=== PATIENT | female | born 1935 | race Caucasian/White ===

== ENCOUNTER → 2019-07-15 | Outpatient (CLI) | payer MEDICARE ==
--- NOTE | 2019-07-15 12:32 | XR ---
EXAMINATION TYPE: XR chest 2V, XR abdomen 1V DATE OF EXAM: 07/15/2019 COMPARISON: NONE HISTORY: Medical clearance TECHNIQUE: Frontal and lateral views of the chest are obtained. Single view of the abdomen was also obtained. FINDINGS: CHEST: Nodular density abutting the left paratracheal space within the left lung apex is seen measuri ng approximately [address] thorax is recommended for this finding. Moderate degenerative changes of the spine and dextroscoliosis of the thoracolumbar spine are noted. There is diffuse osseous demineralization. Flattening of the diaphragms on the lateral view relates to underlying COPD as does an increased retr osternal airspace. Cardiomediastinal silhouette is within normal limits. ABDOMEN: Levoscoliosis of the lumbar spine and advanced degenerative changes are seen. Colonic fecal stasis is seen within the rectum and right hemicolon. No suspicious calcification in the abdomen or pelvis. Os seous structures appear intact. IMPRESSION: 1. CT thorax is recommended for an 8 mm nodule density at the medial left lung apex. 2. Underlying emphysema is seen with no acute pulmonary process. 3. Mild degree colonic fecal stasis of the right hemicolon and rectum. Nonobstructive bowel gas patte rn.
== END | disposition home or self-care (01) ==
LOC: LABWHC1 10:57
PROVIDERS: ATTEND Urology
DX: J43.9 Emphysema, unspecified (principal); R91.1 Solitary pulmonary nodule; R19.5 Other fecal abnormalities; I10 Essential (primary) hypertension; C64.2 Malignant neoplasm of left kidney, except renal pelvis
CPT/HCPCS: 36415; 71046; 74018; 93005

== ENCOUNTER → 2019-07-29 | Outpatient (CLI) | payer MEDICARE ==
--- NOTE | 2019-07-29 11:59 | CT ---
EXAMINATION TYPE: CT chest w con DATE OF EXAM: 07/29/2019 COMPARISON: None HISTORY: Left renal cancer, C 65.1 CT DLP: 116.4 mGycm, Automated exposure control for dose reduction was used. CONTRAST: Performed injected with 100 ml mL of Isovue 300. TECHNIQUE: Axial images were obtained at 5 mm thick sections. Reconstructed images are reviewed on [employer] computer in the coronal plane. FINDINGS: Portion of the thyroid visualized is normal. There is a 0.3 cm nodule within the posterior right midlung. Series 4 image 30. There is a 0.3 cm nod ule in the right middle lobe. Series 4 image 40 No enlarged mediastinal or hilar adenopathy is evident. The ascending aorta diameter at the level o f the main pulmonary artery is 3.5 cm. The main pulmonary artery diameter at the bifurcation is 2.[address] sections are obtained through the upper abdomen. There is diminished contrast within the l eft superior kidney compared to the right. IMPRESSIONS: 1. 2 small nodules measuring 0.3 cm each within the right lung. 2. Asymmetry of the contrast within the kidneys likely related to the patient's renal cancer
--- NOTE | 2019-07-29 19:11 | NM ---
EXAMINATION TYPE: NM bone scan whole body DATE OF EXAM: 07/29/2019 COMPARISON: NONE HISTORY: C 65.1 renal cancer Delayed whole-body scanning was performed following the injection of 26.1 mCi Tc 99m MDP. Images wer e acquired 4.5 hours post injection. FINDINGS: Several scattered areas of focal uptake are suspicious for radiotracer. There is intense uptake withi n the bilateral sacral ala and through the bilateral Ischial rami and within the left pubic ramus josé picious for metastatic disease. There is uptake within right ribs on right rib 5,6,7 region anteriorly have focal uptake which can be related to metastatic disease. Trauma should be considered at this location as well. There is an add itional foci of radiotracer which appears to be in the posterior lateral left 11th rib. Metastatic di sease trauma could be considered. There is focal radiotracer accumulation in the region of L4 and L5 which is better appreciated on the posterior views. Metastatic disease isn't trauma could be considered. There is a scoliosis within th e thoracolumbar spine suggesting degenerative changes should also be considered. Plain film correlati on could be performed. Additionally there is some radiotracer T10 T8 and T7 which could be related to trauma or metastatic d isease. Plain film correlation could be performed. IMPRESSION: 1. Focal areas of uptake within the pelvis and sacral ala suggestive for metastatic disease. 2. Uptake within the lumbar spine could be degenerative, posttraumatic, or metastatic disease. 3. Focal uptake within the mid lower thoracic spine could be posttraumatic or metastatic etiology. 4. Focal uptake within the anterior right mid ribs a posterior left lateral lower rib can be related to trauma or metastatic disease.
== END | disposition home or self-care (01) ==
LOC: RADNMMAIN 10:00
PROVIDERS: ATTEND Urology
DX: R91.1 Solitary pulmonary nodule (principal); C65.1 Malignant neoplasm of right renal pelvis; Z88.0 Allergy status to penicillin
CPT/HCPCS: 82565; 84520; 71260; 36415; 78306; A9503; Q9967

== ENCOUNTER → 2019-08-09 | Outpatient (CLI) | payer MEDICARE ==
[2019-08-09 12:22] LABS: Basophils % (A) 1 %; Eosinophils # (A) 0.3 k/uL (0-0.7); Eosinophils % (A) 3 %; HCT 40.4 % (34.0-46.0); HGB 13.3 gm/dL (11.4-16.0); Hypochromasia Slight; Lymphocytes # (A) 2.6 k/uL (1.0-4.8); Lymphocytes % (A) 32 %; MCH 30.8 pg (25.0-35.0); MCHC 32.9 g/dL (31.0-37.0); MCV 93.6 fL (80.0-100.0); Mean Platelet Volume 7.7; Monocytes # (A) 0.6 k/uL (0-1.0); Monocytes % (A) 7 %; Neutrophils # (A) 4.6 k/uL (1.3-7.7); Neutrophils % (A) 56 %; Platelet Count 233 k/uL (150-450); RBC 4.32 m/uL (3.80-5.40); RDW 12.4 % (11.5-15.5); WBC 8.2 k/uL (3.8-10.6)
[2019-08-09 12:26] LABS: INR 0.9 (<1.2); Prothrombin Time 9.9 sec (9.0-12.0)
[2019-08-09 12:31] LABS: Albumin 3.9 g/dL (3.5-5.0); Calcium 9.5 mg/dL (8.4-10.2); Potassium 3.9 mmol/L (3.5-5.1); Total Bilirubin 0.4 mg/dL (0.2-1.3); Total Protein 7.2 g/dL (6.3-8.2)
== END | disposition home or self-care (01) ==
LOC: LABPAT 11:23
PROVIDERS: ATTEND Urology
DX: Z01.812 Encounter for preprocedural laboratory examination (principal); C65.2 Malignant neoplasm of left renal pelvis; E86.0 Dehydration; R31.29 Other microscopic hematuria; I10 Essential (primary) hypertension; Z79.899 Other long term (current) drug therapy
CPT/HCPCS: 36415; 80053; 85025; 85610; 87086

== ENCOUNTER 2019-08-16 11:01 | Day surgery (SDC) | payer MEDICARE ==
--- NOTE | 2019-08-10 13:19 | P.HPIHPCON ---
History of Present Illness H&P Date: 08/10/19 Chief Complaint: Left sided renal pelvis tumor Ms. Pablo is a 84 yo female with hx of left sided tumor involving the renal pelvis and extending down the ureter. She elected to proceed with left sided NephU. We discussed risks and benefit of surgery with her. have explained the operation/procedure to the patient, including the risks, benefits, side effects, alternative therapies (including not receiving the proposed treatment or service), the likelihood of the patient achieving his/her goals, and potential recuperation problems for the procedure/sedation/analgesia, as well as any blood products, if indicated. I also explained to the patient the risks, benefits and side effects of the alternatives, as well as the risks related to not receiving the proposed procedure, care, treatment, or services. I also reviewed her metastatic workup with her and discussed the finding on the CT showing 3mm nodules and this could represent metastatic disease. Discussed with her biopsy would be difficult, given the size of those lesions. I also discussed the find ing of bone scan and discussed with radiology and with her and indicated that those lesion are most likely post traumatic, but they could also represent metastatic disease. She understood all the risk and agreed to proceed Consent for Procedure: I have explained the operation/procedure to the patient, including the risks, benefits, side effects, alternative therapies (including not receiving the proposed treatment or service), the likelihood of the patient achieving his/her goals, and potential recuperation problems for the procedure/sedation/analgesia, as well as any blood products, if indicated. I also explained to the patient the risks, benefits and side effects of the alternatives, as well as the risks related to not receiving the proposed procedure, care, treatment, or services. 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
[~2019-08-16 11:01] MED LIST: DEXAMETHASONE SOD PHOSPHATE 10 MG/ML 1 ML VIAL IV ONE; HYDROmorphone 0.5 MG/0.5 ML SYRINGE IVP PRN; MIDAZOLAM 2 MG/2 ML VIAL IV PRN; ONDANSETRON 4 MG/2 ML VIAL IVP ONE
[2019-08-16] MEDS ORDERED: LIDOCAINE 1% 20 ML VIAL (10MG/ML) FOR IV START INTRADERMA ONE (11:51)
[2019-08-16] MEDS: LACTATED RINGERS 1,000 ML IV SCH (11:51)
[2019-08-16] MEDS ORDERED: SUCCINYLCHOLINE CHLORIDE 100 MG/5 ML SYR IV ONE (12:44)
[2019-08-16] MEDS ORDERED: METOPROLOL TARTRATE 5 MG/5 ML VIAL IVP ONE (12:44)
[2019-08-16] MEDS ORDERED: ESMOLOL 100 MG/10 ML VIAL ONE (12:44)
[2019-08-16] MEDS ORDERED: MIDAZOLAM 2 MG/2 ML VIAL ONE (12:44)
[2019-08-16] MEDS ORDERED: LIDOCAINE 1% INJ 10MG/ML (20 ML MDV) ONE (12:44)
[2019-08-16] MEDS ORDERED: PROPOFOL 10 MG/ML 20 ML VIAL IV ONE (12:44)
[2019-08-16] MEDS ORDERED: NEOSTIGMINE 1 MG/ML 10 ML VIAL ONE (12:44)
[2019-08-16] MEDS ORDERED: GLYCOPYRROLATE 0.2 MG/ML 2 ML VIAL ONE (12:44)
[2019-08-16] MEDS ORDERED: fentaNYL (PF) 50 MCG/ML 2 ML AMP ONE (12:44)
[2019-08-16] MEDS ORDERED: ePHEDrine SULFATE/0.9% NACL/PF 50 MG/5 ML SYRINGE IV ONE (12:44)
[2019-08-16] MEDS ORDERED: ROCURONIUM BROMIDE 10 MG/ML 10 ML VIAL IV ONE (12:44)
[2019-08-16] MEDS ORDERED: PHENYLEPHRINE-0.9% NACL SYG 1 MG/10 ML SYRINGE ONE (12:44)
[2019-08-16] MEDS ORDERED: BUPIVACAINE (PF) 0.5% 30 ML VIAL SQ ONE ×2 (12:49)
[2019-08-16] MEDS ORDERED: LACTATED RINGERS 1,000 ML IV ONE (13:45)
[2019-08-16] MEDS ORDERED: HYDROmorphone 1 MG/ML 1 ML SYRINGE IVP PRN (15:55)
[2019-08-16] MEDS ORDERED: METHOCARBAMOL 750 MG TAB PO PRN (15:58)
[2019-08-16] MEDS: ACETAMINOPHEN TAB 325 MG TAB PO SCH ×2 (18:25→21:41)
[2019-08-16] MEDS: HEPARIN SODIUM,PORCINE 5,000 UNIT/ML 1 ML VIAL SQ SCH (18:26)
[2019-08-16 21:16] LABS: Basophils % (A) 0 %; Eosinophils % (A) 0 %; HCT 38.4 % (34.0-46.0); HGB 12.2 gm/dL (11.4-16.0); Hypochromasia Slight; Lymphocytes # (A) 0.5 k/uL (1.0-4.8); Lymphocytes % (A) 4 %; MCH 31.1 pg (25.0-35.0); MCHC 31.7 g/dL (31.0-37.0); MCV 97.8 fL (80.0-100.0); Mean Platelet Volume 7.7; Monocytes # (A) 0.6 k/uL (0-1.0); Monocytes % (A) 5 %; Neutrophils # (A) 10.9 k/uL (1.3-7.7); Neutrophils % (A) 89 %; Platelet Count 189 k/uL (150-450); RBC 3.92 m/uL (3.80-5.40); RDW 12.4 % (11.5-15.5); WBC 12.2 k/uL (3.8-10.6)
[2019-08-16 21:26] LABS: Calcium 9.2 mg/dL (8.4-10.2); Potassium 4.6 mmol/L (3.5-5.1)
[2019-08-16] MEDS: D5-0.45% NACL WITH KCL 20MEQ/L 1,000 ML IV SCH (21:42)
[2019-08-17] MEDS: ACETAMINOPHEN TAB 325 MG TAB PO SCH ×7 (00:51→23:43)
[2019-08-17] MEDS: HEPARIN SODIUM,PORCINE 5,000 UNIT/ML 1 ML VIAL SQ SCH ×4 (00:51→23:43)
[2019-08-17] MEDS: D5-0.45% NACL WITH KCL 20MEQ/L 1,000 ML IV SCH ×3 (04:43→23:12)
--- NOTE | 2019-08-17 11:55 | P.PN ---
Subjective Progress Note Date: 08/17/19 POD #1 S/P left NephU, no overight event. Pain controlled, tolerating diet, denies N/V. Objective - Vital Signs Vital signs: Vital Signs Temp 98.1 F 08/17/19 07:00 Pulse 67 08/17/19 08:50 Resp 17 08/17/19 08:50 BP 123/67 08/17/19 07:00 Pulse Ox 99 08/17/19 07:00 Intake & Output 08/16/19 08/17/19 08/17/19 18:59 06:59 18:59 Intake Total 1750 1375 Output Total 245 710 Balance 1505 665 Intake: IV 1750 Intake, IV Titration 1375 Amount D5-0.45% NaCl with KCl 1375 20Meq/l 1,000 ml @ 125 mls/hr IV .Q8H [facility] Rx#: [id number] Output: Drainage 60 Left Lower Abdomen 60 Urine 145 650 Estimated Blood Loss 100 Other: Voiding Method Indwelling Catheter Indwelling Catheter Indwelling Catheter - Constitutional General appearance: Present: no acute distress - Gastrointestinal General gastrointestinal: Present: soft. Absent: distended, tenderness - Labs CBC & Chem 7: 08/16/19 21:06 08/16/19 21:06 Labs: Abnormal Lab Results - Last 24 Hours (Table) 08/16/19 08/16/19 Range/Units 21:06 21:06 WBC 12.2 H (3.8-10.6) k/uL Neutrophils # 10.9 H (1.3-7.7) k/uL Lymphocytes # 0.5 L (1.0-4.8) k/uL Sodium 136 L (137-145) mmol/L BUN 19 H (7-17) mg/dL Glucose 158 H (74-99) mg/dL Assessment and Plan Assessment: POD #1 S/P Left NephU Plan: -Ambulate -Pain control -Regular diet -PM labs -discharge home tomorrow
[2019-08-17 15:05] VITALS: BMI 18.9
--- NOTE | 2019-08-17 19:34 | P.OP ---
Date of Procedure: 08/16/19 Preoperative Diagnosis: Left renal pelvis mass Postoperative Diagnosis: same Procedure(s) Performed: Robotic assisted Left nephroureterctomy, and Retroperitoneal lymph node excision Anesthesia: SHREYA Surgeon: Juanito Almendarez Furnace Unloader #1: Giovany Green Estimated Blood Loss (ml): 100 Indications for Procedure: Ms. Pablo is a 84 yo female with hx of left sided tumor involving the renal pelvis and extending down the ureter. She elected to proceed with left sided NephU. We discussed risks and benefit of surgery with her. I have explained the operation/procedure to the patient, including the risks, benefits, side effects, alternative therapies (including not receiving the proposed treatment or service), the likelihood of the patient achieving his/her goals, and potential recuperation problems for the procedure/sedation/analgesia, as well as any blood products, if indicated. I also explained to the patient the risks, benefits and side effects of the alternatives, as well as the risks related to not receiving the proposed procedure, care, treatment, or services. I also reviewed her metastatic workup with her and discussed the finding on the CT showing 3mm nodules and this could represent metastatic disease. Discussed with her biopsy would be difficult, given the size of those lesions. I also discussed the finding of bone scan and discussed with radiology and with her and indicated that those lesion are most likely post traumatic, but they could also represent metastatic disease. She understood all the risk and agreed to proceed Operative Findings: Very stuck and no clear surgical planes along the kidney secondary to patient aggressive tumor Description of Procedure: The patient was taken to the operating room . General anesthesia was induced. She was prepped and draped in sterile fashion, she was placed in modified flank position . All pressure points were padded. The abdominal insufflation was achieved with the Veress needle. A 8 mm camera port was placed. Robotic trocars and assistant clinical nurse manager ports were placed under direct vision. Lysis of adhesion was performed laproscopically. The robot was docked into place. The colon was mobilized medially by incising along the white line of Toldt. Of note the kidney was stuck to the pancreas and spleen, the surgical planes were very difficult to dissect and develop secondary to patient aggressive tumor. When the spleen was mobilized a small laceration was noticed along spleen capsule. Hemostasis was achieved using Tisseal and Bipolar. Once the bowel, spleen and pancreas were mobilized. At this time it was noted that the medial kidney edge was adherent to the aorta, no surgical plane was appreciated. The inferior mesentric artery was ligated using clips in order to safely mobilize the kidney off of the aorta and in order to mobilize the ureter further. The ureter was retracted anteriorly off the psoas muscle. Dissection proceeded cranially towards the renal hilum. The upper pole attachments were dissected. Care was taken to safely mobilize the kidney free of all visceral structures.The renal vessels were dissected and ligated using the vascular stapler. The adrenal gland was mobilized. Lateral and remaining kidney attachments were released.The ureter was dissected further distally. of note the ureter was adherent to the illiac vessels, but a plane was obtained and the ureter was dissected off of the illiac vessels. Dissection was carried down to the bladder and ureteral orfice was excised with an adequate bladder cuff margin. there was an enlarged retroperitoneal node that was excised. The specimen was placed in a 15 mm endocatch bag for subsequent retrieval. The spleen was evaluated at the end of case and there was no evidence of bleeding. The bowel was examined at the end of case the there was no evidence of bowel ischemia. Hemostatic agent was placed along the hilum and adrenal plane. The cystotomy was closed with 3-0 V-loc suture in a running fashion and the defect was confirmed to be water tight with irrigation. A GUALBERTO drain was left in place. The robot was then de-docked and the specimen was then removed by extending the assistant clinical nurse manager port. Fascia was closed with #1 Stratafix. Skin was closed with subcuticular sutures and dermabond. The patient was awoken from general anesthesia in stable condition. Please refer to the final pathology report for final diagnosis. .
[2019-08-17 21:26] LABS: Calcium 8.8 mg/dL (8.4-10.2); Potassium 4.3 mmol/L (3.5-5.1)
[2019-08-17 21:33] LABS: Basophils % (A) 0 %; Eosinophils % (A) 0 %; HCT 36.3 % (34.0-46.0); HGB 11.5 gm/dL (11.4-16.0); Hypochromasia Slight; Lymphocytes # (A) 1.4 k/uL (1.0-4.8); Lymphocytes % (A) 14 %; MCH 30.8 pg (25.0-35.0); MCHC 31.7 g/dL (31.0-37.0); MCV 97.2 fL (80.0-100.0); Monocytes # (A) 0.6 k/uL (0-1.0); Monocytes % (A) 6 %; Neutrophils % (A) 79 %; Platelet Count 168 k/uL (150-450); RBC 3.74 m/uL (3.80-5.40); RDW 12.5 % (11.5-15.5); WBC 10.1 k/uL (3.8-10.6)
[2019-08-18] MEDS: ACETAMINOPHEN TAB 325 MG TAB PO SCH ×4 (05:10→17:23)
[2019-08-18] MEDS: D5-0.45% NACL WITH KCL 20MEQ/L 1,000 ML IV SCH ×2 (05:11→11:56)
[2019-08-18 07:42] VITALS: BP 154/77; PULSE 78; RESP 15; TEMP 98.5
[2019-08-18] MEDS: HEPARIN SODIUM,PORCINE 5,000 UNIT/ML 1 ML VIAL SQ SCH ×2 (09:19→17:23)
--- NOTE | 2019-08-18 12:25 | P.PN ---
Subjective Progress Note Date: 08/18/19 POD #2 S/P left NephU, no overight event. Pain controlled, tolerating diet, denies N/V. Objective - Vital Signs Vital signs: Vital Signs Temp 98.5 F 08/18/19 07:00 Pulse 78 08/18/19 08:00 Resp 15 08/18/19 08:00 BP 154/77 08/18/19 07:00 Pulse Ox 97 08/18/19 07:00 Intake & Output 08/17/19 08/18/19 08/18/19 18:59 06:59 18:59 Intake Total 1400 1250 Output Total 670 2505 30 Balance 730 -1255 -30 Weight 48.534 kg Intake: Intake, IV Titration 1000 1250 Amount D5-0.45% NaCl with KCl 1000 1250 20Meq/l 1,000 ml @ 125 mls/hr IV .Q8H [facility] Rx#: [id number] Oral 400 Output: Drainage 20 80 30 Left Lower Abdomen 20 80 30 Urine 650 2425 Other: Voiding Method Indwelling Catheter Indwelling Catheter - Constitutional General appearance: Present: no acute distress - Gastrointestinal General gastrointestinal: Present: soft. Absent: distended, rigid - Genitourinary Genitourinary Comment(s): mora clear yellow urine - Integumentary Integumentary Comment(s): Incision: CDI - Psychiatric Psychiatric: Present: A&O x's 3 - Labs CBC & Chem 7: 08/17/19 20:53 08/17/19 20:53 Labs: Abnormal Lab Results - Last 24 Hours (Table) 08/17/19 08/17/19 Range/Units 20:53 20:53 RBC 3.74 L (3.80-5.40) m/uL Neutrophils # 8.0 H (1.3-7.7) k/uL Sodium 136 L (137-145) mmol/L Carbon Dioxide 31 H (22-30) mmol/L Glucose 135 H (74-99) mg/dL Assessment and Plan Assessment: POD #2 S/P Left NephU Plan: -Ambulate -Pain control -Regular diet -remove GUALBERTO -discharge home today -F/U next week for mora removal
--- NOTE | 2019-08-18 13:20 | P.DS ---
Providers Date of admission: 08/16/19 Expected date of discharge: 08/18/19 Attending physician: Juanito Almendarez MD Primary care physician: [facility] Course: 84 yo female S/P Left NephU, please see Op note dated 08/16 for full surgery details. Patient did well in post operative period. She was advanced to regular diet on POD #1. Her GUALBERTO was removed on POD #2. She was discharged home on POD #2. At time of discharge she was tolerating diet, ambulating and pain controlled Patient Condition at Discharge: Good Plan - Discharge Summary Discharge Rx Participant: Yes New Discharge Prescriptions: No Action Ezetimibe [Zetia] 10 mg PO HS Losartan-Hctz 50-12.5 mg [Hyzaar 50-12.5] 1 tab PO DAILY Discharge Medication List Ezetimibe [Zetia] 10 mg PO HS 08/11/19 [History] Losartan-Hctz 50-12.5 mg [Hyzaar 50-12.5] 1 tab PO DAILY 08/11/19 [History] Follow up Appointment(s)/Referral(s): Juanito Almendarez MD [STAFF PHYSICIAN] - 08/30/19 9:00 am [facility] Visiting Nurse, [NON-STAFF] - As Needed Activity/Diet/Wound Care/Special Instructions: Discharge home with Johnson catheter. Okay to shower. Diet as tolerated. No lifting, driving, or strenuous activity. B Please reassure patient that it is common to experience the following: Hematuria, urinary leakage around the catheter, abdominal wall bruisingg. Discharge Disposition: HOME SELF-CARE
== END 2019-08-18 17:59 | disposition home or self-care (01) ==
LOC: OR 11:01 → 4SSUR 16:04 → OR 08-18 17:59
PROVIDERS: ATTEND Urology
DX: C64.2 Malignant neoplasm of left kidney, except renal pelvis (principal); C66.2 Malignant neoplasm of left ureter; C65.2 Malignant neoplasm of left renal pelvis; C77.2 Secondary and unspecified malignant neoplasm of intra-abdominal lymph nodes; I10 Essential (primary) hypertension; K66.0 Peritoneal adhesions (postprocedural) (postinfection); Z96.0 Presence of urogenital implants; Z79.899 Other long term (current) drug therapy; Z88.0 Allergy status to penicillin; Z87.891 Personal history of nicotine dependence; Z98.890 Other specified postprocedural states
CPT/HCPCS: 50548; 38570; 86900; 86901; 88305; 80048 ×2; 85025 ×2; 86850; 88342; 88307; 88341; 82570; C1762; J2250; J1644 ×3; J1100; J2710; J0690; J2405; J2001; J3010; J1170 ×2; J2370; J0330; J2704

== ENCOUNTER → 2019-08-24 | Outpatient (CLI) | payer MEDICARE ==
--- NOTE | 2019-08-24 11:48 | FL ---
EXAMINATION TYPE: FL cystogram DATE OF EXAM: 08/24/2019 COMPARISON: CT chest July 29, 2019 HISTORY: History of left-sided nephrectomy for cancer TECHNIQUE: Fluoroscopic-assisted cystogram. A total of 300 cc of Cystografin was utilized. 49 seconds of fluoroscopic time was provided. 17 spot images are stated the PACS FINDINGS: Preprocedure scenario writer radiograph shows no obvious abnormality. Retrograde filling through a Fo robe catheter is performed. Lucency from Johnson balloon is present. Small left lateral trabeculation or diverticulum is identified. After filling to 300 cc as requested patient is in pain. No contrast ext ravasation is identified. Postvoid image shows small amount of residual contrast in bladder. IMPRESSION: No leak is evident.
== END | disposition home or self-care (01) ==
LOC: RADFLMAIN 09:39
PROVIDERS: ATTEND Urology
DX: R19.00 Intra-abdominal and pelvic swelling, mass and lump, unspecified site (principal); Z88.0 Allergy status to penicillin
CPT/HCPCS: 74430

== ENCOUNTER → 2019-11-04 | Outpatient (CLI) | payer MEDICARE ==
--- NOTE | 2019-11-04 10:58 | US ---
EXAMINATION TYPE: US venous doppler duplex LE DATE OF EXAM: 11/04/2019 10:45 AM COMPARISON: NONE CLINICAL HISTORY: Lower Ext Swelling R60.9. Feet swelling x 1 month SIDE PERFORMED: Bilateral TECHNIQUE: The lower extremity deep venous system is examined utilizing real time linear array sonog lamonte with graded compression, doppler sonography and color-flow sonography. VESSELS IMAGED: External Iliac Vein (EIV) Common Femoral Vein Deep Femoral Vein Greater Saphenous Vein * Femoral Vein Popliteal Vein Small Saphenous Vein * Proximal Calf Veins (* superficial vessels) Right Leg: Appears negative for DVT Left Leg: Appears negative for DVT Grayscale, color doppler, spectral doppler imaging performed of the deep veins of the bilateral lower extremities. There is normal flow, compressibility, vascular waveforms. IMPRESSION: No ultrasound evidence for acute DVT in either lower extremity.
== END | disposition home or self-care (01) ==
LOC: RADUSWWP 10:13
PROVIDERS: ATTEND Urology
DX: D41.02 Neoplasm of uncertain behavior of left kidney (principal); R31.1 Benign essential microscopic hematuria; R60.9 Edema, unspecified; Z88.0 Allergy status to penicillin
CPT/HCPCS: 93970

== ENCOUNTER → 2019-11-05 | Outpatient (CLI) | payer MEDICARE ==
--- NOTE | 2019-11-07 11:32 | CT ---
EXAMINATION TYPE: CT abdomen pelvis wo con DATE OF EXAM: 11/05/2019 COMPARISON: CT chest 07/29/2019, bone scan 07/29/2019 HISTORY: Left renal mass. Abdominal pain. CT DLP: 217.6 mGycm Automated exposure control for dose reduction was used. TECHNIQUE: Helical acquisition of images was performed from the lung bases through the pelvis. FINDINGS: LUNG BASES: There are numerous pulmonary nodules seen scattered throughout all lobes and segments of the lungs highly suggestive of widespread metastases. LIVER/GB: Limited by the lack of IV contrast for assessment of mass. At the dome of the liver there a re findings suspicious for a malignancy of possible metastasis measuring 3 cm which does not appear t o been present on the recent CT scan of the chest dated 07/29/2019. PANCREAS: Limited by noncontrast technique and adjacent large soft tissue masses and therefore nondia gnostic in assessment. SPLEEN: Difficult to clearly depicted due to large amount of GE adjacent soft tissue mass suspected a denopathy or metastases. ADRENALS: No significant abnormality is seen. KIDNEYS: Lack of contrast severely limits the exam. Right kidney demonstrates a 1 cm hypodensity whic h is indeterminate by noncontrast technique. Left kidney is not seen correlate for previous nephrecto my or possibly the kidney is being obscured due to the extensive soft tissue masses involving the abd ominal cavity. Additionally within the pelvis the large areas of soft tissue mass compressed the blad nikki. Without contrast is difficult to determine if there is bladder involvement. This should be corre lated clinically.. OSSEOUS STRUCTURES: Abnormal findings involving the bilateral pubic rami with suspected pathologic f racture bilaterally and evidence of bony metastases. Additionally there is abnormal attenuation invol ving the sacrum bilaterally is compatible with insufficiency type fractures likely pathologic. Chroni c appearing fracture of the right transverse process of L5 noted. There is a grade 1 spondylolisthesi s of L4 on L5 with severe degenerative disc disease, severe canal stenosis and bilateral foraminal en croachment. Areas of sclerosis involving L2, L3, and L4 correspond to the bone scan abnormalities but appear most likely on a degenerative basis although metastatic disease is not excluded. Lucent area at the level of T10 could been the basis of metastatic disease. Sclerotic change involving the right lower anterior rib cage correspond to the bone scan abnormalities also suspicious for metastases. BOWEL: No significant abnormality is seen. OTHER: There are massive areas of abnormal soft tissue throughout the abdomen and pelvis. The encroac hment upon the lateral margin of the left paraspinal line. The occupying a large portion of the abdom inal and pelvic cavities with the largest area of suspected conglomerate adenopathy or mass extending a distance of 15 cm. Anteriorly there is large amount of abnormal soft tissue mass in the abdomen ex tending from the abdominal cavity through the anterior abdominal wall region into the subcutaneous ti ssues of the pelvis. IMPRESSION: 1. Massive areas of soft tissue mass, matted adenopathy or malignancy involving the entire abdomen an d pelvis as discussed above with the largest area measuring 15 cm in craniocaudal dimension extending from the abdominal cavity into the lower pelvis. Numerous areas of large masses are seen compressing many structures. 2. Numerous pulmonary nodules suggestive of metastases 3. Fractures involving both pubic rami and anterior column of the left acetabulum as well as insuffic iency type fractures involving the sacrum bilaterally which may be pathologic. Bony metastases suspec eleanor. 4. Indeterminate right renal lesion #5 new 3 cm mass involving the dome of the liver suspicious for m alignancy
== END | disposition home or self-care (01) ==
LOC: RADCTMAIN 14:45
PROVIDERS: ATTEND Urology
DX: R31.1 Benign essential microscopic hematuria (principal); D41.02 Neoplasm of uncertain behavior of left kidney; R60.9 Edema, unspecified; Z88.0 Allergy status to penicillin
CPT/HCPCS: 74176